=== PATIENT | female | born 1995 | race Caucasian/White ===

== ENCOUNTER 2017-04-27 03:15 | Emergency (ER) | payer SELFPAY ==
[~2017-04-27] VITALS: Ht 170.2 cm; Wt 53.5 kg
--- NOTE | 2017-04-27 04:11 | ED Abdominal Pain ---
General Stated Complaint: ABD PAIN Source of Information: Patient, Other Exam Limitations: No Limitations History of Present Illness Date Seen by Provider: Apr 27, 2017 Time Seen by Provider: 04:00 Initial Comments Patient presents to ER by private conveyance with a chief complaint that last night after dinner she started having some upset stomach nausea or abdominal pain in her epigastric region and loose stools. The diarrhea did not have any blood in it. She did not vomit. She did go get some medicine from [facility] apparently they had Domperidone and simethicone listed in the active ingredients. She did not feel that that helped her diarrhea. She says her pain is better now than it was. No one else got sick at that time. She does not have a history of irritable bowel or inflammatory bowel although she says she does have a history of getting this chronic loose stools. She denies any cough, nasal congestion, fevers, chills Allergies and Home Medications Allergies Coded Allergies: No Known Drug Allergies (Unverified , 04/27/17) Home Medications Ondansetron 4 Mg Tab.rapdis, 4 MG PO Q6H PRN for NAUSEA/VOMITING, #8 Ref 0 Prescribed by: RANDY PAUL on 04/27/17 0414 Review of Systems Constitutional: No chills, No diaphoresis, No fever EENTM: No Eye Pain, No Ear Pain Respiratory: Denies Cough, Denies Shortness of Air Cardiovascular: Denies Chest Pain, Denies Lightheadedness Gastrointestinal: See HPI, Denies Abdomen Distended, Abdominal Pain (epigastric ), Denies Constipated, Diarrhea, Denies Difficulty Swallowing, Nausea, Denies Poor Appetite, Denies Poor Fluid Intake, Denies Rectal Bleeding, Denies Vomiting Genitourinary: Denies Burning, Denies Discharge Musculoskeletal: No back pain, No joint pain Past [id number]-[id number] Hx Patient Social History Alcohol Use: Denies Use Recreational Drug Use: No Smoking Status: Never a Smoker Recent Foreign Travel: No Contact w/Someone Who Travel: No Physical Exam Vital Signs VS - Last 72 Hours, by Label 04/27/17 04:00 Temp 97.0 Pulse 95 Resp 20 B/P (MAP) 141/88 (105) Pulse Ox 100 O2 Delivery Room Air Capillary Refill : General Appearance: WD/WN, no apparent distress HEENT: PERRL/EOMI, pharynx normal (oral mucosa is moist) Respiratory: lungs clear, normal breath sounds, no respiratory distress Cardiovascular: normal peripheral pulses, regular rate, rhythm Peripheral Pulses: 2+ Dorsalis Pedis (R), 2+ Left Dors-Pedis (L) Gastrointestinal: normal bowel sounds (active), soft, No distended, No guarding , No rebound, tenderness (epigastric region as well as some tenderness suprapubic) Neurologic/Psychiatric: alert, oriented x 3 Skin: normal color, warm/dry Progress/Results/Core Measures Results/Orders Lab Results Laboratory Tests Test 04/27/17 04:06 Range/Units White Blood Count 17.9 H 4.3-11.0 10^3/uL Red Blood Count 4.22 L 4.35-5.85 10^6/uL Hemoglobin 13.8 11.5-16.0 G/DL Hematocrit 39 35-52 % Mean Corpuscular Volume 92 80-99 FL Mean Corpuscular Hemoglobin 33 25-34 PG Mean Corpuscular Hemoglobin Concent 36 32-36 G/DL Red Cell Distribution Width 11.8 10.0-14.5 % Platelet Count 229 130-400 10^3/uL Mean Platelet Volume 10.0 7.4-10.4 FL Neutrophils (%) (Auto) 76 H 42-75 % Lymphocytes (%) (Auto) 17 12-44 % Monocytes (%) (Auto) 6 0-12 % Eosinophils (%) (Auto) 1 0-10 % Basophils (%) (Auto) 0 0-10 % Neutrophils # (Auto) 13.6 H 1.8-7.8 X 10^3 Lymphocytes # (Auto) 3.1 1.0-4.0 X 10^3 Monocytes # (Auto) 1.1 H 0.0-1.0 X 10^3 Eosinophils # (Auto) 0.1 0.0-0.3 10^3/uL Basophils # (Auto) 0.0 0.0-0.1 10^3/uL Neutrophils % (Manual) 72 % Lymphocytes % (Manual) 21 % Monocytes % (Manual) 4 % Eosinophils % (Manual) 1 % Band Neutrophils 2 % Blood Morphology Comment NORMAL Urine Color YELLOW Urine Clarity CLEAR Urine pH 6 5-9 Urine Specific [place] 1.020 1.016-1.022 Urine Protein NEGATIVE NEGATIVE Urine Glucose (UA) NEGATIVE NEGATIVE Urine Ketones NEGATIVE NEGATIVE Urine Nitrite NEGATIVE NEGATIVE Urine Bilirubin NEGATIVE NEGATIVE Urine Urobilinogen NORMAL NORMAL MG/DL Urine Leukocyte Esterase 1+ H NEGATIVE Urine RBC (Auto) 2+ H NEGATIVE Urine RBC 2-5 H /HPF Urine WBC 10-25 H /HPF Urine Squamous Epithelial Cells 0-2 /HPF Urine Crystals NONE /LPF Urine Bacteria LARGE H /HPF Urine Casts NONE /LPF Urine Mucus SMALL H /LPF Urine Culture Indicated YES Sodium Level 139 135-145 MMOL/L Potassium Level 4.0 3.6-5.0 MMOL/L Chloride Level 107 98-107 MMOL/L Carbon Dioxide Level 22 21-32 MMOL/L Anion Gap 10 5-14 MMOL/L Blood Urea Nitrogen 13 7-18 MG/DL Creatinine 0.74 0.60-1.30 MG/DL Estimat Glomerular Filtration Rate > 60 BUN/Creatinine Ratio 18 Glucose Level 100 70-105 MG/DL Calcium Level 9.2 8.5-10.1 MG/DL Total Bilirubin 0.7 0.1-1.0 MG/DL Aspartate Amino Transf (AST/SGOT) 15 5-34 U/L Alanine Aminotransferase (ALT/SGPT) 14 0-55 U/L Alkaline Phosphatase 40 40-136 U/L Total Protein 7.5 6.4-8.2 GM/DL Albumin 4.2 3.2-4.5 GM/DL Lipase 11 8-78 U/L My Orders Orders - RANDY PAUL Ua Culture If Indicated (04/27/17 04:01) Cbc With Automated Diff (04/27/17 04:01) Comprehensive Metabolic Panel (04/27/17 04:01) Lipase (04/27/17 04:01) Manual Differential (04/27/17 04:06) Urine Culture (04/27/17 04:06) Vital Signs/I&O Vital Sign - Last 12Hours 04/27/17 04:00 Temp 97.0 Pulse 95 Resp 20 B/P (MAP) 141/88 (105) Pulse Ox 100 O2 Delivery Room Air Progress Note : Time: 04:10 Progress Note The domperidone is listed as a promotility prokinetic and may be the source of her diarrhea if she is been using a lot however she was not clarify on this. I have advised her against taking this and instead will advise her to take Imodium if she needs it otherwise just lots of fluids as this is most likely a viral gastroenteritis. She may also end up having some irritable bowel syndrome that she can have follow-up with her primary care physician to help diagnose. We are going to give her some nausea medicine and check some blood work and urinalysis as she was having suprapubic tenderness and if those things are okay we'll let her follow up outpatient. Departure Impression Impression: Primary Impression: Urinary tract infection Qualified Codes: N30.01 - Acute cystitis with hematuria Disposition: HOME, SELF-CARE Condition: Improved Departure-Patient Inst. Decision time for Depature: 05:01 Referrals: [facility] (PCP/Family) Primary Care Physician Patient Instructions: Urinary Tract Infection, Adult (DC) Add. Discharge Instructions: Drink Plenty of fluids you can use half strength Gatorade or Powerade. If your diarrhea goes on for more than 24-48 hours or if you are feeling dehydrated and cannot keep up with your fluid intake then take 2 tablets of Imodium and every 4 hours afterwards if you have a loose stool take another tablet. Eat a bland high-fiber diet consisting of things such as bananas, rice, applesauce, toast. 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 If your nausea comes back you can take one tablet of Zofran and place it on your tongue and allow it to absorb through your mouth every 6 hours as needed to control your nausea. Scripts Nitrofurantoin Monohyd/M-Cryst (Macrobid 100 mg Capsule) 100 Mg Capsule 1 TAB PO BID for 7 Days, #14 CAP 0 Refills Prov: RANDY PAUL 04/27/17 Ondansetron (Ondansetron Odt) 4 Mg Tab.rapdis 4 MG PO Q6H Y for NAUSEA/VOMITING, #8 TAB 0 Refills Prov: RANDY PAUL 04/27/17 Work/School Note: Work Release Form Date Seen in the Emergency Department: Apr 27, 2017 Return to Work: Apr 28, 2017 Restrictions: No Restrictions RANDY PAUL Apr 27, 2017 04:11
[2017-04-27] MEDS ORDERED: ONDA4TAB11 PO (04:14)
[2017-04-27 04:17] LABS: BASOPHILS % (AUTO) 0 % (0-10); BILIRUBIN,URINE NEGATIVE (NEGATIVE); CLARITY,URINE CLEAR; COLOR,URINE YELLOW; EOSINOPHILS # (AUTO) 0.1 10^3/uL (0.0-0.3); EOSINOPHILS % (AUTO) 1 % (0-10); GLUCOSE, URINE (UA) NEGATIVE (NEGATIVE); HEMATOCRIT 39 % (35-52); HEMOGLOBIN 13.8 G/DL (11.5-16.0); KETONES,URINE NEGATIVE (NEGATIVE); LEUKOCYTE ESTERASE ,URINE 1+ (NEGATIVE); LYMPHOCYTES # (AUTO) 3.1 X 10^3 (1.0-4.0); LYMPHOCYTES % (AUTO) 17 % (12-44); MEAN CORPUSCULAR HEMOGLOBIN 33 PG (25-34); MEAN CORPUSCULAR HGB CONC 36 G/DL (32-36); MEAN CORPUSCULAR VOLUME 92 FL (80-99); MONOCYTES # (AUTO) 1.1 X 10^3 (0.0-1.0); MONOCYTES % (AUTO) 6 % (0-12); NEUTROPHILS # (AUTO) 13.6 X 10^3 (1.8-7.8); NEUTROPHILS % (AUTO) 76 % (42-75); NITRITE,URINE NEGATIVE (NEGATIVE); PH,URINE 6 (5-9); PLATELET COUNT 229 10^3/uL (130-400); PROTEIN,URINE NEGATIVE (NEGATIVE); RED BLOOD COUNT 4.22 10^6/uL (4.35-5.85); RED CELL DISTRIBUTION WIDTH 11.8 % (10.0-14.5); UROBILINOGEN,URINE NORMAL (NORMAL); WHITE BLOOD COUNT 17.9 10^3/uL (4.3-11.0)
[2017-04-27 04:32] LABS: BACTERIA,URINE LARGE /HPF; SQUAMOUS EPITHELIAL CELL,UR 0-2 /HPF
[2017-04-27 04:39] LABS: ALANINE AMINOTRANSFERASE 14 U/L (0-55); ALBUMIN 4.2 GM/DL (3.2-4.5); ALKALINE PHOSPHATASE 40 U/L (40-136); BILIRUBIN,TOTAL 0.7 MG/DL (0.1-1.0); BUN/CREATININE RATIO 18; CALCIUM 9.2 MG/DL (8.5-10.1); CARBON DIOXIDE 22 MMOL/L (21-32); CHLORIDE 107 MMOL/L (98-107); CREATININE SERUM 0.74 MG/DL (0.60-1.30); GFR ESTIMATED > 60; GLUCOSE 100 MG/DL (70-105); LIPASE 11 U/L (8-78); SODIUM 139 MMOL/L (135-145); TOTAL PROTEIN 7.5 GM/DL (6.4-8.2)
[2017-04-27 04:52] LABS: NEUTROPHILS % (MANUAL) 72 %
[2017-04-27 04:53] LABS: BAND NEUTROPHILS 2 %; EOSINOPHILS % (MANUAL) 1 %; LYMPHOCYTES % (MANUAL) 21 %; MONOCYTES % (MANUAL) 4 %; RBC MORPH NORMAL
[2017-04-27] MEDS ORDERED: NITR-65 PO (05:02)
[2017-04-27 05:12] VITALS: BP 127/85
== END 2017-04-27 05:12 | disposition home or self-care (01) ==
LOC: ER 03:19
DX: N39.0 Urinary tract infection, site not specified (principal)
CPT/HCPCS: 36415; 80053; 81000; 83690; 85007; 85027; 87088; 87186; 99283